=== PATIENT | male | born 1990 | race Two or more races ===

== ENCOUNTER 2020-07-27 20:22 | Emergency (ER) | payer SELFPAY ==
[~2020-07-27] VITALS: Ht 180.3 cm; Wt 99.8 kg
[2020-07-27 20:25] VITALS: BP 133/89
[2020-07-28] MEDS ORDERED: IBUPROFEN 800 MG TAB PO ONE (00:30)
== END 2020-07-28 00:42 | disposition home or self-care (01) ==
LOC: ER 20:30
DX: S46.911A Strain of unspecified muscle, fascia and tendon at shoulder and upper arm level, right arm, initial encounter (principal); S00.83XA Contusion of other part of head, initial encounter; S30.811A Abrasion of abdominal wall, initial encounter; S60.511A Abrasion of right hand, initial encounter; S50.311A Abrasion of right elbow, initial encounter; V00.131A Fall from skateboard, initial encounter; Y93.51 Activity, roller skating (inline) and skateboarding; Y92.89 Other specified places as the place of occurrence of the external cause; Y99.8 Other external cause status
CPT/HCPCS: 70450; 73030